=== PATIENT | female | born 1950 | race Caucasian/White ===

== ENCOUNTER 2019-08-28 10:56 | Outpatient (RCR) | payer MEDICARE, SELFPAY ==
--- NOTE | 2019-08-28 11:28 | PTOPEVAL ---
Thank you for referring this patient to [facility]. Please review, sign, date and return this plan of care MARY. I agree with and certify that the following plan of care is medically necessary. Referring Physician Date Admitting Provider: Attending Provider: Sally Sanford NP Referring Provider: *PT Outpatient Evaluation Start: 08/28/19 11:03 Freq: Status: Active Protocol: Document 08/28/19 11:04 BAM (Rec: 08/28/19 11:27 BAM [id number]) Therapy Assessment Status Assessment Status Assessment Status Evaluation Evaluation Information Problem Diagnosis right knee pain Onset 08/20/19 Subjective Information Pt. reports she was walking Query Text:As Reported By Patient/ her granddaughters dog and was Family jerked forward by the dog landing directly on her knee. She report she waited several days before seeing the doctor . She describes pain on the front side of the right knee. She reports that her condition is getting better since the initial injury. She states that no particular activity increases her pain. She states that her goal for therapy is to get rid of her pain. Diagnostic Tests X-Rays For This Problem Yes Prior Level of Function Activity Level (Last 3 Months) Hand Dominance Right Activity of Daily Living Ability Independent Indoor/Home Mobility Independent Community Mobility Independent Stairs Ability Independent Functional Cognition (Planning, Shopping Independent , Taking Medications) Cooking Yes Cleaning Yes Laundry Yes Shopping Yes Driving Yes Pain Assessment Pain Scale Pain Scale Used Numeric (1 - 10) Self Report Pain Assessment Right Knee(s) Reported Pain Level 2 Additional Pain Comments pt. is not currently taking any medication Pain Score Pain Score 2: Self Report Lower Extremity Range of Motion General Lower Extremity Range of Motion Gross Lower Extremity Range of Motion right knee AROM 5-125 degrees Comments and left knee AROM 2-135 degrees Lower Extremity Muscle Strength Testing General Lower Extremity Strength Gross Lower Extremity Strength
== END 2019-09-08 15:34 | disposition home or self-care (01) ==
LOC: CHSPT 10:56
PROVIDERS: Visit Provider Nurse Practitioner Family
DX: M25.561 Pain in right knee (principal)
CPT/HCPCS: 97014; 97110; 97161; G0283

== ENCOUNTER 2020-01-30 11:25 | Outpatient (CLI) | payer MEDICARE, SELFPAY ==
[2020-01-30 11:45] LABS: Basophils Absolute Auto 0.09 K/mm3 (0.00-0.10); Basophils Percent Auto 1.4 % (0.0-1.0); Eosinophils Absolute Auto 0.41 K/mm3 (0.02-0.50); Eosinophils Percent Auto 6.2 % (1.0-6.0); Hematocrit 45.5 % (35.0-42.0); Hemoglobin 15.1 g/dL (11.7-13.8); Immature Granulocyte Absolute 0.02 K/mm3 (0.00-0.00); Immature Granulocyte Percent A 0.3 % (0.0-0.0); Lymphocytes Absolute Auto 2.09 K/mm3 (1.10-4.50); Lymphocytes Percent Auto 31.6 % (18.0-42.0); Mean Corpuscular HGB Conc 33.2 g/dL (32.0-36.0); Mean Corpuscular Hemoglobin 31.3 pg (27.0-31.0); Mean Corpuscular Volume 94.4 fL (78.0-102.0); Mean Platelet Volume 10.1 fl (9.2-11.8); Monocytes Absolute Auto 0.54 K/mm3 (0.10-0.90); Monocytes Percent Auto 8.2 % (2.0-11.0); Neutrophils Absolute Auto 3.5 K/mm3 (1.7-7.2); Neutrophils Percent Auto 52.3 % (50.0-70.0); Platelet Count Result 263 K/mm3 (150-420); Red Blood Count 4.82 M/mm3 (4.20-5.40); Red Cell Distribution Width 13.8 % (11.6-14.4); White Blood Count 6.6 K/mm3 (4.8-10.8)
[2020-01-30 12:17] LABS: Hemoglobin A1C 6.1 % (<5.7)
[2020-01-30 12:39] LABS: Alanine Aminotransferase 33 U/L (14-59); Albumin Level 3.7 g/dL (3.4-5.0); Alkaline Phosphatase 73 U/L (46-116); Anion Gap 9.5 mmol/L (7-16); Aspartate Amino Transferase 23 U/L (15-37); Bilirubin,Total 0.4 mg/dL (0.00-1.00); Blood Urea Nitrogen 16 mg/dL (7-18); Calcium 9.2 mg/dL (8.5-10.1); Carbon Dioxide 34 mmol/L (21-32); Chloride 103 mmol/L (98-108); Cholesterol 158 mg/dL (0-200); Estimated Glomerular Filt Rate > 60; Glucose 92 mg/dL (70-99); HDL Direct 47 mg/dL (40-60); LDL Cholesterol Calculated 82 mg/dL (<130); Osmolality Calculated 295 mOsm/kg (285-295); Potassium 4.5 mmol/L (3.5-5.1); Sodium 142 mmol/L (136-145); Total Protein 7.2 g/dL (6.4-8.2); Triglycerides 143 mg/dL (0-150)
== END 2020-01-30 11:26 | disposition home or self-care (01) ==
LOC: CHSLAB 11:31
PROVIDERS: PCP Nurse Practitioner Family; Visit Provider Nurse Practitioner Family
DX: E78.5 Hyperlipidemia, unspecified (principal); E11.69 Type 2 diabetes mellitus with other specified complication; E11.9 Type 2 diabetes mellitus without complications; I10 Essential (primary) hypertension
CPT/HCPCS: 36415; 80053; 80061; 83036; 85025

== ENCOUNTER 2020-01-31 13:28 | Outpatient (CLI) | payer MEDICARE, SELFPAY ==
--- NOTE | ~2020-01-31 | MM_ITS ---
EXAMINATION: MM screening julien BI w yumi HISTORY: Screening mammogram TECHNIQUE: Craniocaudal and mediolateral oblique 3-D tomosynthesis images were obtained and synthetic 2-D images were generated. CAD analysis was submitted and interpreted. COMPARISON: 11/02/2017 BREAST PARENCHYMAL COMPOSITION: The breasts are heterogeneously dense, which may obscure small masses . FINDINGS: There is no evidence of suspicious mass, calcification, or architectural distortion to sugg est malignancy in either breast. There has been no suspicious interval change. IMPRESSION: 1. No mammographic evidence of malignancy. 2. Recommend routine screening mammography in one year. BI-RADS Category 1: Negative Reviewed, dictated and finalized at location D.
== END 2020-01-31 13:29 | disposition home or self-care (01) ==
LOC: CHSIMG 13:29
PROVIDERS: PCP Nurse Practitioner Family; Visit Provider Nurse Practitioner Family
DX: Z12.31 Encounter for screening mammogram for malignant neoplasm of breast (principal)
CPT/HCPCS: 77063; 77067

== ENCOUNTER 2021-04-02 12:47 | Outpatient (CLI) | payer MEDICARE, SELFPAY ==
--- NOTE | ~2021-04-02 | XR_ITS ---
EXAMINATION: XR knee LT min 4V EXAM DATE: 04/02/2021 13:08 INDICATION: No known recent injury provided at this time. Pain of the left knee. TECHNIQUE: Left knee lateral, frontal AP, frontal PA tunnel, sunrise projections. There is no prior study for comparison. FINDINGS: No evidence osteochondral defect or joint body in the left knee joint. There are no acute fractures or dislocations identified. There is no subcutaneous gas. No joint effusion. There is mi ld tricompartmental primary osteoarthritis. There are no radiopaque foreign bodies. IMPRESSION: Mild left knee osteoarthritis. Reviewed, dictated and finalized at location B.
== END 2021-04-02 12:48 | disposition home or self-care (01) ==
LOC: CHSIMG 12:49
PROVIDERS: PCP Family Medicine; Visit Provider Family Medicine
DX: M25.562 Pain in left knee (principal); M17.12 Unilateral primary osteoarthritis, left knee
CPT/HCPCS: 73564

== ENCOUNTER 2021-04-11 11:05 | Outpatient (RCR) | payer MEDICARE, SELFPAY ==
--- NOTE | 2021-04-11 12:21 | PTOPEVAL ---
Thank you for referring Kayley Valladares to [facility].? The patient is scheduled to be seen for therapy? ____x/week for ___ weeks. Please review, sign, date and return this plan of care MARY. I agree with and certify that the following plan of care is medically necessary. Referring Physician Date Admitting Provider: Attending Provider: Koby Chatterjee MD Referring Provider: *PT Outpatient Evaluation Start: 04/11/21 11:10 Freq: Status: Active Protocol: Document 04/11/21 11:10 [facility] [[email or web address]] (Rec: 04/11/21 12:20 [facility] [[email or web address]] [email or web address]) Therapy Assessment Status Assessment Status Assessment Status Evaluation Evaluation Information Problem Diagnosis L knee pain Onset 04/02/21 Additional Evaluation Detail LEFS = 78% functional deficits Subjective Information patient reports she has been Query Text:As Reported By Patient/ having pain for a few weeks. Family she reports she almost fell but caught herself from falling. she reports later that night the front of the knee began hurting. she reports since then it has felt like its going to come out of joint. she reports she is worried about falling. she reports she has rearranged her furniture to avoid falling at home. she reports she did use a cane for a few days initially, but reports she has not been using it since. she reports trouble getting comfortable to get to sleep. she reports she also has increased difficulty walking. increased hesitation to ambulate stairs. Prior Level of Function Comments Additional Prior Level of Function prior to a few weeks ago, no Comments issues with the L knee. she reports she had worn a brace a few days since the injury, but reports she has since stopped wearing the brace. she reports prior to injury she was able to easily complete house work and home projects, but reports since the injury she has stopped home care and projects. Pain Assessment
--- NOTE | 2021-04-24 13:58 | PTOPEVAL ---
Thank you for referring Kayley Valladares to [facility].? The patient is scheduled to be seen for therapy? ____x/week for ___ weeks. Please review, sign, date and return this plan of care MARY. I agree with and certify that the following plan of care is medically necessary. Referring Physician Date Admitting Provider: Attending Provider: Koby Chatterjee MD Referring Provider: *PT Outpatient Evaluation Start: 04/11/21 11:10 Freq: Status: Active Protocol: Document 04/24/21 13:00 ACR (Rec: 04/24/21 13:57 ACR [id number]) Therapy Assessment Status Assessment Status Assessment Status Discharge Evaluation Information Problem Diagnosis L knee pain Onset 04/02/21 Subjective Information Patient reports that since Query Text:As Reported By Patient/ beginning therapy the patient Family is able to perform her projects and is able to walk with minimal difficulty. She states the pain is the worst at night but it does not stay for long. She states that she does her exercises daily and will continue to do them but feels she is able to be done with therapy at this time. Pain Assessment Timing of Pain Assessment Timing of Pain Assessment Assessment Pain Scale Pain Scale Used Numeric (1 - 10) Self Report Pain Assessment Left Knee(s) Reported Pain Level 1 Greatest Pain Intensity 8 Pain Score Pain Score 1: Self Report Interventions Used Interventions Used By Clinicians Activity or ADL's,Exercise Lower Extremity Range of Motion Knee Range of Motion Right Knee Flexion Range of Motion - Active 124 Knee Flexion Range of Motion - Passive -7 Left Knee Flexion Range of Motion - Active 126 Knee Extension Range of Motion - Active -10 Query Text: Lower Extremity Muscle Strength Testing Hip Strength Left Hip Flexion Strength 4+ Good + Right Hip Flexion Strength 4+ Good + Knee Strength Left Knee Flexion Strength 5 Normal Knee Extension Strength 5 Normal Right Knee Flexion Strength 5 Normal Knee Extension Strength 5 Normal Ankle Strength Bilateral Ankle Dorsiflexion Strength 5 Normal Ankle Plantarflexion Strength 4+ Good + Muscle Length Testing Muscle Length Testing Left Hamstring Length 15 Query Text:(90 - 90 Position) Right Hamstring Length 10 Query Text:(90 - 90 Position) Palpation Assessment Palpation Palpation Patient has no tendern
== END 2021-04-24 15:15 | disposition home or self-care (01) ==
LOC: CHSPT 11:05
PROVIDERS: PCP Family Medicine; Visit Provider Family Medicine
DX: M25.562 Pain in left knee (principal)
CPT/HCPCS: 97014; 97110; 97161; 97530; G0283

== ENCOUNTER 2021-11-19 10:35 | Outpatient (CLI) | payer MEDICARE, SELFPAY ==
[2021-11-19 10:47] LABS: Basophils Absolute Auto 0.09 K/mm3 (0.00-0.10); Basophils Percent Auto 1.2 % (0.0-1.0); Eosinophils Absolute Auto 0.43 K/mm3 (0.02-0.50); Eosinophils Percent Auto 5.9 % (1.0-6.0); Hematocrit 45.9 % (35.0-42.0); Hemoglobin 14.9 g/dL (11.7-13.8); Immature Granulocyte Absolute 0.02 K/mm3 (0.00-0.00); Immature Granulocyte Percent A 0.3 % (0.0-0.0); Lymphocytes Percent Auto 30.1 % (18.0-42.0); Mean Corpuscular HGB Conc 32.5 g/dL (32.0-36.0); Mean Corpuscular Hemoglobin 30.6 pg (27.0-31.0); Mean Corpuscular Volume 94.3 fL (78.0-102.0); Monocytes Percent Auto 8.2 % (2.0-11.0); Neutrophils Percent Auto 54.3 % (50.0-70.0); Platelet Count Result 268 K/mm3 (150-420); Red Blood Count 4.87 M/mm3 (4.20-5.40); Red Cell Distribution Width 13.3 % (11.6-14.4); White Blood Count 7.3 K/mm3 (4.8-10.8)
[2021-11-19 11:00] LABS: Hemoglobin A1C 5.7 % (<5.7)
[2021-11-19 11:51] LABS: Alanine Aminotransferase 32 U/L (14-59); Albumin Level 3.6 g/dL (3.4-5.0); Alkaline Phosphatase 77 U/L (46-116); Aspartate Amino Transferase 20 U/L (15-37); Bilirubin,Total 0.4 mg/dL (0.00-1.00); Blood Urea Nitrogen 18 mg/dL (7-18); Calcium 9.4 mg/dL (8.5-10.1); Carbon Dioxide 29 mmol/L (21-32); Cholesterol 174 mg/dL (0-200); Estimated Glomerular Filt Rate > 60; Glucose 98 mg/dL (70-99); Total Protein 6.9 g/dL (6.4-8.2); Triglycerides 118 mg/dL (0-150)
[2021-11-19 12:05] LABS: HDL Direct 51 mg/dL (40-60); LDL Cholesterol Calculated 99 mg/dL (<130)
[2021-11-19 12:43] LABS: Anion Gap 8 mmol/L (8-16); Chloride 105 mmol/L (98-108); Osmolality Calculated 295 mOsm/kg (285-295); Potassium 3.9 mmol/L (3.5-5.1); Sodium 142 mmol/L (136-145)
[2021-11-21 16:07] LABS: Vitamin D 25 Hydroxy 13 ng/mL (30-100)
== END 2021-11-19 10:36 | disposition home or self-care (01) ==
LOC: CHSLAB 10:39
PROVIDERS: PCP Nurse Practitioner Family; Visit Provider Nurse Practitioner Family
DX: E78.5 Hyperlipidemia, unspecified (principal); I10 Essential (primary) hypertension; E55.9 Vitamin D deficiency, unspecified; E11.59 Type 2 diabetes mellitus with other circulatory complications
CPT/HCPCS: 36415; 80053; 80061; 82306; 83036; 85025

== ENCOUNTER 2023-05-20 11:27 | Outpatient (CLI) | payer MEDICARE, SELFPAY ==
--- NOTE | ~2023-05-20 | XR_ITS ---
XR hand BI arthritis min 3V DATE: 05/20/2023 11:57 INDICATION: Bilateral hand pain, stiffness TECHNIQUE: 4 views of each hand COMPARISON: None FINDINGS: Osteoarthritic changes noted at the distal interphalangeal joints of the right hand, especi ally first and second digits. No fracture, dislocation, periosteal reaction or bone destruction, erosive change or chondrocalcinosi s of either hand is noted. IMPRESSION: Mild osteoarthritis involving primarily the right distal interphalangeal joints Reviewed, dictated and finalized at location L. IMPRESSION: Mild osteoarthritis involving primarily the right distal interphala ngeal joints
[2023-05-20 11:54] LABS: Basophils Absolute Auto 0.09 K/mm3 (0.00-0.10); Basophils Percent Auto 1.3 % (0.0-1.0); Eosinophils Absolute Auto 0.34 K/mm3 (0.02-0.50); Hematocrit 46.5 % (35.0-42.0); Hemoglobin 15.1 g/dL (11.7-13.8); Immature Granulocyte Absolute 0.02 K/mm3 (0.00-0.00); Immature Granulocyte Percent A 0.3 % (0.0-0.0); Lymphocytes Absolute Auto 1.99 K/mm3 (1.10-4.50); Lymphocytes Percent Auto 29.1 % (18.0-42.0); Mean Corpuscular HGB Conc 32.5 g/dL (32.0-36.0); Mean Corpuscular Hemoglobin 30.4 pg (27.0-31.0); Mean Corpuscular Volume 93.6 fL (78.0-102.0); Mean Platelet Volume 10.5 fl (9.2-11.8); Monocytes Absolute Auto 0.56 K/mm3 (0.10-0.90); Monocytes Percent Auto 8.2 % (2.0-11.0); Neutrophils Absolute Auto 3.8 K/mm3 (1.7-7.2); Neutrophils Percent Auto 56.1 % (50.0-70.0); Platelet Count Result 261 K/mm3 (150-420); Red Blood Count 4.97 M/mm3 (4.20-5.40); Red Cell Distribution Width 13.6 % (11.6-14.4); White Blood Count 6.8 K/mm3 (4.8-10.8)
[2023-05-20 12:16] LABS: Hemoglobin A1C 5.7 % (<5.7)
[2023-05-20 12:34] LABS: Alanine Aminotransferase 25 U/L (14-59); Albumin Level 3.6 g/dL (3.4-5.0); Alkaline Phosphatase 101 U/L (46-116); Anion Gap 11 mmol/L (8-16); Aspartate Amino Transferase 16 U/L (15-37); Bilirubin,Total 0.5 mg/dL (0.00-1.00); Blood Urea Nitrogen 17 mg/dL (7-18); CRP 0.5 mg/dL (0.0-0.9); Calcium 9.2 mg/dL (8.5-10.1); Carbon Dioxide 25 mmol/L (21-32); Chloride 106 mmol/L (98-108); Cholesterol 162 mg/dL (0-200); Estimated Glomerular Filt Rate > 60; Glucose 95 mg/dL (70-99); HDL Direct 50 mg/dL (40-60); LDL Cholesterol Calculated 81 mg/dL (<130); Osmolality Calculated 295 mOsm/kg (285-295); Potassium 4.8 mmol/L (3.5-5.1); Sodium 142 mmol/L (136-145); Total Protein 6.8 g/dL (6.4-8.2); Triglycerides 155 mg/dL (0-150)
[2023-05-20 12:59] LABS: Rheumatoid Factor Screen Negative (Negative)
[2023-05-24 08:39] LABS: ANA Cascade Screen Negative (Negative)
[2023-05-27 09:46] LABS: HLA B27 Negative (Negative)
== END 2023-05-20 11:28 | disposition home or self-care (01) ==
LOC: CHSLAB 11:29
PROVIDERS: PCP Family Medicine; Visit Provider Family Medicine
DX: M19.041 Primary osteoarthritis, right hand (principal); E11.9 Type 2 diabetes mellitus without complications; Z52.008 Unspecified donor, other blood
CPT/HCPCS: 36415; 73130; 80053; 80061; 83036; 85025; 86038; 86140; 86430; 86812

== ENCOUNTER 2024-07-11 12:22 | Outpatient (CLI) | payer MEDICARE, SELFPAY ==
[2024-07-11 13:07] LABS: Basophils Absolute Auto 0.08 K/mm3 (0.00-0.10); Basophils Percent Auto 1.2 % (0.0-1.0); Eosinophils Absolute Auto 0.31 K/mm3 (0.02-0.50); Eosinophils Percent Auto 4.7 % (1.0-6.0); Hematocrit 47.5 % (35.0-42.0); Hemoglobin 15.5 g/dL (11.7-13.8); Immature Granulocyte Absolute 0.03 K/mm3 (0.00-0.00); Immature Granulocyte Percent A 0.5 % (0.0-0.0); Lymphocytes Absolute Auto 1.72 K/mm3 (1.10-4.50); Lymphocytes Percent Auto 26.2 % (18.0-42.0); Mean Corpuscular HGB Conc 32.6 g/dL (32-36); Mean Corpuscular Hemoglobin 29.8 pg (27.0-31.0); Mean Corpuscular Volume 91.3 fL (78.0-102.0); Mean Platelet Volume 10.2 fl (9.2-11.8); Monocytes Absolute Auto 0.55 K/mm3 (0.10-0.90); Monocytes Percent Auto 8.4 % (2.0-11.0); Neutrophils Absolute Auto 3.88 K/mm3 (1.70-7.20); Platelet Count Result 251 K/mm3 (150-420); Red Cell Distribution Width 13.7 % (11.6-14.4); White Blood Count 6.6 K/mm3 (4.8-10.8)
[2024-07-11 13:14] LABS: Hemoglobin A1C 5.6 % (<5.7)
[2024-07-11 13:50] LABS: Creatinine Urine 197.52 mg/dL (40-278); MALB Creatinine Ratio 14.2 mg/g (0-30); Microalbumin Urine Random 28.1 mg/L
[2024-07-11 14:18] LABS: Alanine Aminotransferase 45 U/L (14-59); Albumin Level 3.6 g/dL (3.4-5.0); Alkaline Phosphatase 102 U/L (46-116); Anion Gap 10 mmol/L (4-12); Aspartate Amino Transferase 17 U/L (15-37); Bilirubin,Total 0.7 mg/dL (0.00-1.00); Blood Urea Nitrogen 16 mg/dL (7-18); Calcium 9.3 mg/dL (8.5-10.1); Carbon Dioxide 28 mmol/L (21-32); Chloride 106 mmol/L (98-108); Cholesterol 235 mg/dL (0-200); Estimated Glomerular Filt Rate > 60; Glucose 97 mg/dL (70-99); HDL Direct 51 mg/dL (40-60); LDL Cholesterol Calculated 153 mg/dL (<130); Osmolality Calculated 299 mOsm/kg (285-295); Potassium 4.4 mmol/L (3.5-5.1); Sodium 144 mmol/L (136-145); Total Protein 6.9 g/dL (6.4-8.2); Triglycerides 153 mg/dL (0-150)
== END 2024-07-11 12:23 | disposition home or self-care (01) ==
LOC: CHSLAB 12:23
PROVIDERS: PCP Family Medicine; Visit Provider Family Medicine
DX: G62.9 Polyneuropathy, unspecified (principal); E11.9 Type 2 diabetes mellitus without complications
CPT/HCPCS: 36415; 80053; 80061; 82043; 83036; 85025

== ENCOUNTER 2024-08-10 17:20 | Emergency (ER) | payer MEDICARE, SELFPAY ==
[2024-08-10] VITALS (8 sets, daily range): BP systolic 149–230; BP diastolic 70–104; PULSE 48–71; RESP 17–22; TEMP 36.6–37; O2SAT 95–97
--- NOTE | 2024-08-10 17:21 | ECG_ITS ---
Test Date: 2024-08-10 17:57:14 Measurements Intervals [place] Rate: 55 P: 0 [place]: 0 QRS: -37 QRSD: 116 T: 57 QT: 387 QTc: 373 Interpretive Statements ATRIAL FIBRILLATION WITH SLOW VENTRICULAR RESPONSE LEFT AXIS DEVIATION [QRS AXIS < -30] SEPTAL MYOCARDIAL INFARCTION , PROBABLY OLD [40+ ms Q WAVE IN V1/V2] No previous ECG available for comparison Electronically Signed On 08-11-2024 16:17:33 COURTESY CLERK by Willian Morrison M.D.
--- NOTE | 2024-08-10 17:31 | ED_ITS ---
HPI - General Adult General Chief complaint: Unspecified Stated complaint: sent by pcp Time Seen by Provider: 08/10/24 17:20 History of Present Illness HPI narrative: Kayley is a 74F with a PMH of HTN, HLD that presented to the ED with very elevated BP for a day. No CP or dyspnea. Related Data Allergies Allergy/AdvReac Type Severity Reaction Status Date / Time No Known Allergies Allergy Verified 07/11/24 09:13 Review of Systems 2 Review of Systems: All systems reviewed & are unremarkable except as noted in HPI and below [facility] Past Medical History Medical History Left knee pain Positive depression screening Numbness of finger Obesity, Class II, BMI 35-39.9 Hypertension associated with diabetes Hyperlipidemia associated with type 2 diabetes mellitus Osteoporosis DM2 (diabetes mellitus, type 2) Surgical History Surgical History History of cholecystectomy (~01/2018) January 2018 History of hysterectomy (~1997) 1997 Family History Family History Father Family history of type 2 diabetes mellitus Hypertension Mother Hypertension Family history of type 2 diabetes mellitus Other Diabetes mellitus Family history of glaucoma Family history of malignant neoplasm Social History Social History Smoking status: Never smoker Alcohol intake: current Alcohol use details: social Substance use: current Substance use type: marijuana Living arrangements: alone Occupation/Education: retired Gender identity (if verbalized by the patient): Female Exam 2 Const: General: cooperative, healthy appearing, comfortable, no acute distress, well developed, alert, awake and Physically active O rientation/consciousness: oriented to person, oriented to place and oriented to time HENMT: Head: normal to inspection, normocephalic and atraumatic Ears: h earing grossly normal bilaterally and external ears normal Face/Nose/Sinus: N ormal external nose present Eyes: General: appearance normal, both eyes and all related structures P eriorbital: periorbital findings normal Sclera: sclerae normal Pupils: E qual, round and reactive pupils present Neck: Neck: normal visual inspection Chest: Chest palpation & inspection: normal inspection of the chest Resp: Effort & Inspection: normal respiratory effort, able to speak in complete sentences and no respiratory distress Auscultation: clear to auscultation bilaterally Cardio: Jugular venous distension: no JVD Rate: regular rate Rhythm: r egular rhythm GI: Inspection: normal to inspection GI Palp: Yes Soft to palpation A uscultation: normal bowel sounds Skin: General skin exam: normal color and no rashes or lesions noted Neuro: General: oriented to person, oriented to place and oriented to time Cranial nerves: Yes Equal, round and reactive pupils present Extrem: General: normal to inspection Course Course Emergency Course: EKG showed sinus rhythm with a rate 55, left axis deviation, but no ST elevation/depression Labs showed no signs of end organ damage. BP had started to come down on PO meds We discussed return precautions and the importance of taking her meds Vital Signs Vital signs: Vital Signs Temperature 97.9 F 08/10/24 17:30 Pulse Rate 71 08/10/24 17:30 Respiratory Rate 18 08/10/24 17:30 Blood Pressure 230/100 H 08/10/24 17:30 Pulse Oximetry 96 08/10/24 17:30 Oxygen Delivery Room Air 08/10/24 17:30 Temperature 97.9 F 08/10/24 17:30 Pulse Rate 49 L 08/10/24 19:49 Respiratory Rate 17 08/10/24 19:49 Blood Pressure 161/78 H 08/10/24 19:49 Pulse Oximetry 97 08/10/24 19:49 Oxygen Delivery Room Air 08/10/24 17:30 Medical Decision Making Vital Signs Vital Signs: Vital Signs Temperature 97.9 F 08/10/24 17:30 Pulse Rate 71 08/10/24 17:30 Respiratory Rate 18 08/10/24 17:30 Blood Pressure 230/100 H 08/10/24 17:30 Pulse Oximetry 96 08/10/24 17:30 Oxygen Delivery Room Air 08/10/24 17:30 Temperature 97.9 F 08/10/24 17:30 Pulse Rate 49 L 08/10/24 19:49 Respiratory Rate 17 08/10/24 19:49 Blood Pressure 161/78 H 08/10/24 19:49 Pulse Oximetry 97 08/10/24 19:49 Oxygen Delivery Room Air 08/10/24 17:30 Lab Data 08/10/24 17:31 08/10/24 17:31 Labs: Lab Results 08/10/24 08/10/24 Range/Units 17:31 18:58 WBC 9.9 (4.8-10.8) K/mm3 RBC 5.02 (4.20-5.40) M/mm3 Hgb 15.0 H (11.7-13.8) g/dL Hct 45.3 H (35.0-42.0) % MCV 90.2 (78.0-102.0) fL MCH 29.9 (27.0-31.0) pg MCHC 33.1 (32-36) g/dL RDW 13.6 (11.6-14.4) % Plt Count 265 (150-420) K/mm3 MPV 10.6 (9.2-11.8) fl Immature Gran % (Auto) 0.5 H (0.0-0.0) % Neut % (Auto) 62.4 (50.0-70.0) % Lymph % (Auto) 24.7 (18.0-42.0) % [place] % (Auto) 7.4 (2.0-11.0) % Eos % (Auto) 4.2 (1.0-6.0) % Baso % (Auto) 0.8 (0.0-1.0) % Lymph # (Auto) 2.44 (1.10-4.50) K/mm3 [place]son # (Auto) 0.73 (0.10-0.90) K/mm3 Eos # (Auto) 0.41 (0.02-0.50) K/mm3 Baso # (Auto) 0.08 (0.00-0.10) K/mm3 Abs Immat Gran (auto) 0.05 H (0.00-0.00) K/mm3 Absolute Neuts (auto) 6.15 (1.70-7.20) K/mm3 Absolute Nucleated RBC 0.00 (0.00-0.00) K/mm3 Nucleated RBC % 0.0 (0-0.0) % Sodium 142 (136-145) mmol/L Potassium 4.1 (3.5-5.1) mmol/L Chloride 105 (98-108) mmol/L Carbon Dioxide 30 (21-32) mmol/L Anion Gap 7 (4-12) mmol/L BUN 13 (7-18) mg/dL Creatinine 0.95 (0.55-1.02) mg/dL Estim Creat Clear Calc 60 ml/min Estimated GFR 57 L (59 - ) Glucose 102 H (70-99) mg/dL Calculated Osmolality 294 (285-295) mOsm/kg Calcium 9.1 (8.5-10.1) mg/dL Magnesium 1.9 (1.8-2.4) mg/dL Total Bilirubin 0.5 (0.00-1.00) mg/dL AST 18 (15-37) U/L ALT 34 (14-59) U/L Alkaline Phosphatase 112 (46-116) U/L Troponin I 4.5 (0.00-60.4) ng/L Total Protein 7.5 (6.4-8.2) g/dL Albumin 3.8 (3.4-5.0) g/dL Urine Opiates Screen Negative (Negative) Urine Methadone Screen Negative (Negative) Ur Barbiturates Screen Negative (Negative) Ur Phencyclidine Scrn Negative (Negative) Ur Amphetamine Screen Negative (Negative) U Benzodiazepines Scrn Negative (Negative) Urine Cocaine Screen Negative (Negative) U Cannabinoids Screen Positive A (Negative) Discharge Plan Discharge Clinical Impression: Hypertensive urgency Patient Disposition: Home, Self-Care Condition: Stable Instructions: Antibiotic Form Patient Language: Finnish Prescriptions: New amlodipine 10 mg tablet 10 mg PO DAILY Qty: 90 0RF No Action metoprolol succinate 25 mg tablet extended release 24 hr 25 mg PO DAILY Qty: 90 3RF losartan 100 mg tablet 100 mg PO DAILY Qty: 60 3RF atorvastatin 40 mg tablet 40 mg PO DAILY Qty: 90 3RF Follow-up/Referrals: Abilio Marin DO [Primary Care Provider] -
[2024-08-10 17:36] LABS: Basophils Absolute Auto 0.08 K/mm3 (0.00-0.10); Basophils Percent Auto 0.8 % (0.0-1.0); Eosinophils Absolute Auto 0.41 K/mm3 (0.02-0.50); Eosinophils Percent Auto 4.2 % (1.0-6.0); Hematocrit 45.3 % (35.0-42.0); Immature Granulocyte Absolute 0.05 K/mm3 (0.00-0.00); Immature Granulocyte Percent A 0.5 % (0.0-0.0); Lymphocytes Absolute Auto 2.44 K/mm3 (1.10-4.50); Lymphocytes Percent Auto 24.7 % (18.0-42.0); Mean Corpuscular HGB Conc 33.1 g/dL (32-36); Mean Corpuscular Hemoglobin 29.9 pg (27.0-31.0); Mean Corpuscular Volume 90.2 fL (78.0-102.0); Mean Platelet Volume 10.6 fl (9.2-11.8); Monocytes Absolute Auto 0.73 K/mm3 (0.10-0.90); Monocytes Percent Auto 7.4 % (2.0-11.0); Neutrophils Absolute Auto 6.15 K/mm3 (1.70-7.20); Neutrophils Percent Auto 62.4 % (50.0-70.0); Platelet Count Result 265 K/mm3 (150-420); Red Blood Count 5.02 M/mm3 (4.20-5.40); Red Cell Distribution Width 13.6 % (11.6-14.4); White Blood Count 9.9 K/mm3 (4.8-10.8)
[2024-08-10] MEDS: METOPROLOL TARTRATE INJ 5 MG/5 ML VIAL IV PUSH (17:47)
[2024-08-10] MEDS: METOPROLOL TARTRATE 50 MG TAB PO (17:48)
[2024-08-10 18:04] LABS: Alanine Aminotransferase 34 U/L (14-59); Albumin Level 3.8 g/dL (3.4-5.0); Alkaline Phosphatase 112 U/L (46-116); Anion Gap 7 mmol/L (4-12); Aspartate Amino Transferase 18 U/L (15-37); Bilirubin,Total 0.5 mg/dL (0.00-1.00); Blood Urea Nitrogen 13 mg/dL (7-18); Calcium 9.1 mg/dL (8.5-10.1); Carbon Dioxide 30 mmol/L (21-32); Chloride 105 mmol/L (98-108); Estimated CRCL calculation 60 ml/min; Estimated Glomerular Filt Rate 57; Glucose 102 mg/dL (70-99); Magnesium 1.9 mg/dL (1.8-2.4); Osmolality Calculated 294 mOsm/kg (285-295); Potassium 4.1 mmol/L (3.5-5.1); Sodium 142 mmol/L (136-145); Total Protein 7.5 g/dL (6.4-8.2); Troponin I 4.5 ng/L (0.00-60.4)
[2024-08-10] MEDS: LOSARTAN POTASSIUM 50 MG TABLET 100 MG PO (18:34)
--- NOTE | 2024-08-10 19:04 | PC.NURSE ---
Report given to MARTA Mckeon
[2024-08-10] MEDS: amLODIPine BESYLATE 5 MG TABLET 10 MG PO (19:09)
[2024-08-10 19:10] LABS: Amphetamine Screen Urine Negative (Negative); Barbiturate Screen Urine Negative (Negative); Benzodiazepines Screen Urine Negative (Negative); Cannabinoid Screen Urine Positive (Negative); Cocaine Screen Urine Negative (Negative); Methadone Screen Urine Negative (Negative); Opiate Screen Urine Negative (Negative); Phencyclidine Screen Urine Negative (Negative)
--- NOTE | 2024-08-10 19:53 | PC.NURSE ---
ERP aware of pt's vital signs. No new orders at this time. States he is getting ready to discharge pt.
== END 2024-08-10 20:25 | disposition home or self-care (01) ==
PROVIDERS: Emergency Provider Family Medicine; PCP Family Medicine
DX: I16.0 Hypertensive urgency (principal); I10 Essential (primary) hypertension; E78.5 Hyperlipidemia, unspecified; E11.9 Type 2 diabetes mellitus without complications; M81.0 Age-related osteoporosis without current pathological fracture; F12.90 Cannabis use, unspecified, uncomplicated; Z79.899 Other long term (current) drug therapy
CPT/HCPCS: 36415; 80053; 80307; 83735; 84484; 85025; 93005; 96374; 99284; A9270

== ENCOUNTER 2024-08-28 13:13 | Outpatient (CLI) | payer MEDICARE, SELFPAY ==
--- NOTE | ~2024-08-28 | MM_ITS ---
EXAMINATION: MM screening julien BI w yumi HISTORY: Screening TECHNIQUE: Craniocaudal and mediolateral oblique 3-D tomosynthesis images were obtained and synthetic 2-D images were generated. CAD analysis was submitted and interpreted. COMPARISON: 01/31/2020 BREAST PARENCHYMAL COMPOSITION: Not dense: There are scattered areas of fibroglandular density. FINDINGS: There is no evidence of suspicious mass, calcification, or architectural distortion to sugg est malignancy in either breast. There has been no suspicious interval change. IMPRESSION: 1. No mammographic evidence of malignancy. 2. Recommend routine screening mammography in one year. BI-RADS Category 1: Negative Reviewed, dictated and finalized at location A. TICS PATTERNMAKER
== END 2024-08-28 13:14 | disposition home or self-care (01) ==
LOC: CHSIMG 13:15
PROVIDERS: PCP Family Medicine; Visit Provider Family Medicine
DX: Z12.31 Encounter for screening mammogram for malignant neoplasm of breast (principal)
CPT/HCPCS: 77063; 77067

== ENCOUNTER 2024-09-04 13:51 | Outpatient (CLI) | payer MEDICARE, SELFPAY ==
--- NOTE | 2024-09-04 13:55 | ECG_ITS ---
Test Date: 2024-09-04 14:06:31 Measurements Intervals [place] Rate: 71 P: 91 [place]: 198 QRS: -24 QRSD: 122 T: 82 QT: 395 QTc: 431 Interpretive Statements SINUS RHYTHM WITH SINUS ARRHYTHMIA INTRAVENTRICULAR CONDUCTION DELAY CANNOT R/O SEPTAL INFARCT, AGE INDETERMINATE BORDERLINE ST-T WAVE ABNORMALITY- HIGH LATERAL LEADS ABNORMAL ECG Compared to ECG 08/10/2024 17:57:14 Atrial fibrillation no longer present Electronically Signed On 09-04-2024 14:18:03 MINT WAFER DEPOSITOR by Babak Davalos D.O.
== END 2024-09-04 13:52 | disposition home or self-care (01) ==
LOC: CHSCARD 13:53
PROVIDERS: PCP Family Medicine; Visit Provider Nurse Practitioner Family
DX: I48.91 Unspecified atrial fibrillation (principal); I49.8 Other specified cardiac arrhythmias; R94.31 Abnormal electrocardiogram [ECG] [EKG]
CPT/HCPCS: 93005

== ENCOUNTER 2025-01-05 13:34 | Outpatient (CLI) | payer MEDICARE, SELFPAY ==
[2025-01-05 14:20] LABS: Alanine Aminotransferase 33 U/L (6-35); Albumin Level 4.5 g/dL (3.5-5.1); Alkaline Phosphatase 94 U/L (38-126); Anion Gap 7 mmol/L (4-12); Aspartate Amino Transferase 31 U/L (14-36); Blood Urea Nitrogen 17 mg/dL (7-17); Calcium 9.8 mg/dL (8.4-10.2); Carbon Dioxide 26 mmol/L (22-30); Chloride 108 mmol/L (98-107); Cholesterol 145 mg/dL (0-200); Estimated Glomerular Filt Rate > 60; Glucose 105 mg/dL (65-110); HDL Direct 51 mg/dL; LDL Cholesterol Calculated 67 mg/dL (<130); Osmolality Calculated 293 mOsm/kg (285-295); Potassium 4.4 mmol/L (3.4-5.0); Sodium 141 mmol/L (137-145); Total Protein 7.4 g/dL (6.3-8.2); Triglycerides 134 mg/dL (<150); Uric Acid 5.4 mg/dL (2.5-7.5)
[2025-01-05 14:24] LABS: Hemoglobin A1C 5.7 % (<5.7)
== END 2025-01-05 13:35 | disposition home or self-care (01) ==
LOC: CHSLAB 13:35
PROVIDERS: PCP Nurse Practitioner Family; Visit Provider Nurse Practitioner Family
DX: M79.641 Pain in right hand (principal); M79.642 Pain in left hand; E11.69 Type 2 diabetes mellitus with other specified complication; E78.5 Hyperlipidemia, unspecified; E11.9 Type 2 diabetes mellitus without complications; I15.2 Hypertension secondary to endocrine disorders; E11.59 Type 2 diabetes mellitus with other circulatory complications
CPT/HCPCS: 36415; 80053; 80061; 83036; 84443; 84550